=== PATIENT | female | born 1970 ===

== ENCOUNTER 2018-07-21 13:45 | Inpatient (IN) | payer OTHER ==
[~2018-07-21] VITALS: Ht 149.9 cm; Wt 77.1 kg
[2018-07-21] MEDS ORDERED: HYDROCHLOROTHIA25 MG (15:31)
[2018-07-21] MEDS ORDERED: GLUMETZA500 MG (15:31)
[2018-07-21] MEDS ORDERED: ENALAPRIL MALEA10 MG (15:31)
[2018-08-03] MEDS ORDERED: ULTRACET PO (09:21)
[2018-08-03] MEDS ORDERED: MIRALAX17 GM PO (09:21)
[2018-08-03] MEDS ORDERED: NEURONTIN300 MG PO (09:21)
== END 2018-08-03 11:58 | disposition home or self-care (01) | DRG 355 ==
LOC: EDSTATUS 13:45 → ADM 13:45 → EDBD 07-30 09:20 → O/R 07-30 09:20 → SURH 07-30 09:20
PROVIDERS: ADMIT Surgery
PROC: 0WUF4JZ Supplement Abdominal Wall with Synthetic Substitute, Percutaneous Endoscopic Approach (ICD-10-PCS; 2018-07-30)
PROC: 0KXL0Z6 Transfer Left Abdomen Muscle, Transverse Rectus Abdominis Myocutaneous Flap, Open Approach (ICD-10-PCS; 2018-07-30)
PROC: 0KXK0Z6 Transfer Right Abdomen Muscle, Transverse Rectus Abdominis Myocutaneous Flap, Open Approach (ICD-10-PCS; 2018-07-30)
PROC: 0WUF4JZ Supplement Abdominal Wall with Synthetic Substitute, Percutaneous Endoscopic Approach (ICD-10-PCS; principal; 2018-07-30 09:45)
DX: K43.0 Incisional hernia with obstruction, without gangrene (principal); K42.0 Umbilical hernia with obstruction, without gangrene; E11.9 Type 2 diabetes mellitus without complications; I10 Essential (primary) hypertension; K59.09 Other constipation; K57.30 Diverticulosis of large intestine without perforation or abscess without bleeding; E83.42 Hypomagnesemia